=== PATIENT | male | born 1945 | race Caucasian/White ===

== ENCOUNTER 2022-05-21 12:35 | Outpatient (CLI) | payer MEDICARE, OTHER, SELFPAY ==
--- NOTE | ~2022-05-21 | PE_ITS ---
EXAMINATION: PET_PETPSMAST_PT DATE: 05/21/2022 15:09 INDICATION: Prostate cancer. TECHNIQUE: 9.249 mCi of piflufolastat F-18 was administered intravenously. Low dose computed tomograp hy (CT) images were acquired from the base of the brain to the proximal thighs for attenuation correc tion and anatomic localization. Automated exposure control was employed. Dose-length product (DLP) wa s 812 mGy-cm. Positron emission tomography (PET) images were acquired in the same distribution. COMPARISON: None FINDINGS: Head/neck: There are no pathologically enlarged lymph nodes. There is a 6 mm radiopaque foreign body in the right anterosuperior scalp. Chest: There is mild scarring at the lung apices. There is mild emphysema. No pleural effusion. The h eart size is normal. There are coronary artery calcifications. No pericardial effusion. 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 There is a 10 x 18 mm right paratracheal lymph node without increased activity, likely reactive. There are bridging endplate osteophytes at multiple levels in th e spine, consistent with diffuse idiopathic skeletal hyperostosis (DISH). Abdomen/pelvis/proximal thighs: The liver, gallbladder, spleen, pancreas, adrenal glands, and kidneys are normal. There is a left inguinal hernia containing fat. There are no dilated loops of bowel. The appendix is normal. There is a small sliding hiatal hernia. There are no pathologically enlarged lym ph nodes. There is no free intraperitoneal fluid. There is a total left hip arthroplasty. There is se baltazar lumbar spondylosis. IMPRESSION: 1. No evidence of metastatic disease. Reviewed, dictated and finalized at location A. [facility]
== END 2022-05-21 12:36 | disposition home or self-care (01) ==
LOC: ANHIMG 12:39
PROVIDERS: PCP Family Medicine; Visit Provider Nurse Practitioner Adult Health
DX: C61 Malignant neoplasm of prostate (principal)
CPT/HCPCS: 78815; A9595